=== PATIENT | female | born 1955 | race Caucasian/White ===

== ENCOUNTER 2018-09-28 19:14 | Observation (INO) ==
[2018-09-28] MEDS ORDERED: Aspirin 81 MG TAB.CHEW PO STA (19:32)
[2018-09-28] MEDS ORDERED: Nitroglycerin 1 INCH/GM PACKET TP ONE (19:32)
[2018-09-28] MEDS ORDERED: 0.9 % Sodium Chloride 1,000 ML ONE (19:36)
--- NOTE | 2018-09-28 19:38 | Emergency Department Note ---
Disposition Clinical Impression: Atypical chest pain Disposition: Admitted As Inpatient Condition: Good Chest Pain HPI - General Chief Complaint: ED Chest Pain Stated Complaint: chest pain Time Seen by Provider: 09/28/18 19:31 Source: patient Mode of arrival: ambulatory Limitations: no limitations Vital Signs Reviewed: Yes Nursing Notes Reviewed: Yes - History of Present Illness HPI Narrative: Patient says she was at work today and began having intermittent sharp left- sided chest pain just above her breast. Did not radiate anywhere. Did not cause any shortness of breath. There is no nausea or vomiting she denies any other complaints. She not having pain at the present time. She says she began to think about it got worried and came to the ER for evaluation. She has never had anything like this before. Pt complaint: chest pain Onset (ago): hour(s) (Several hours) Duration: intermittent Onset: during rest Pain Location: left chest Severity: mild Severity scale (1-10): 4 Quality: sharp Pain Radiation: none Improves with: nothing Worsens with: nothing Associated symptoms: Denies: nausea, vomiting, diaphoresis, dyspnea, sense of impending doom, syncope, palpitations, fever, cough, leg swelling - Related Data Home Medications Medication Instructions Recorded Confirmed Cholesterol Medication 1 tab PO HS 09/28/18 09/28/18 Insulin Glargine [Lantus] 25 unit SQ QAM 09/28/18 09/28/18 Januvia 09/28/18 Nilotinib HCl [Tasigna] 200 mg PO BID 09/28/18 09/28/18 Allergies Allergy/AdvReac Type Severity Reaction Status Date / Time acetaminophen [From Percocet] Allergy Vomiting Verified 09/28/18 19:15 oxycodone [From Percocet] Allergy Vomiting Verified 09/28/18 19:15 Sulfa (Sulfonamide Allergy Hives Verified 09/28/18 19:15 Antibiotics) All systems ED: reviewed and negative except as stated. Review of Systems: As Per HPI Constitutional: Denies: fever, chills, weakness, weight change Eyes: Denies: eye pain, eye discharge, vision change ENT ED: Denies: ear pain, throat pain, dental pain, hearing loss, epistaxis, congestion, dysphagia Cardiovascular: Reports: as per HPI, chest pain Respiratory: Denies: cough, dyspnea, wheezes, hemoptysis, stridor Gastrointestinal: Denies: abdominal pain, nausea, vomiting, diarrhea, constipation, hematemesis, melena, hematochezia Genitourinary: Denies: dysuria, frequency, hematuria, discharge Musculoskeletal: Denies: back pain, neck pain, arthralgia, myalgia Integumentary: Denies: rash, abrasion, lesions Neurological: Denies: headache, weakness, numbness, paresthesias, confusion, abnormal gait, vertigo Psychiatric: Denies: anxiety, depression, suicidal thoughts, homicidal thoughts, auditory hallucinations, visual hallucinations Endocrine: Denies: fatigue Hematological/Lymphatic: Denies: easy bleeding, easy bruising Allergic/Immunologic: Denies: facial swelling, urticaria Chest Pain PMH - Past Medical History Medical history: Reports: cancer, diabetes, hyperlipidemia Psychiatric history: Reports: no psych history 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 Absent: tenderness - Respiratory Respiratory exam: Present: normal lung sounds bilaterally - Cardiovascular Cardiovascular exam: Present: regular rate, normal rhythm, normal heart sounds - Abdominal Exam Abdominal exam: Present: soft, Non-Tender. Absent: tenderness, distention, guarding, rebound, rigidity - Extremities Exam Extremities exam: Present: normal inspection, full ROM. Absent: tenderness, pedal edema - Back Exam Back exam: Present: normal inspection, full ROM. Absent: tenderness - Neurological Exam Neurological exam: Present: alert, oriented X3 - Psychiatric Psychiatric exam: Present: normal affect, normal mood - Skin Skin exam: Present: warm, dry, intact, normal color Course Vital Signs Temperature 98.0 F 09/28/18 19:21 Pulse Rate 70 09/28/18 19:21 Respiratory Rate 18 09/28/18 19:21 Blood Pressure 175/80 09/28/18 19:21 O2 Sat by Pulse Oximetry 100 09/28/18 19:21 Temperature 98 F 09/28/18 21:20 Pulse Rate 76 09/28/18 21:24 Respiratory Rate 18 09/28/18 21:24 Blood Pressure 145/65 09/28/18 21:24 O2 Sat by Pulse Oximetry 97 09/28/18 21:24 Oxygen Delivery Oxygen Delivery Room Air Chest Pain - MDM Narrative Medical decision making narrative: I reviewed the patient's medication list Case discussed with Dr. Mendoza who has graciously agreed to admission of the patient to the hospital - Lab Data Result diagrams: 09/28/18 19:43 09/28/18 19:43 Lab Results 09/28/18 09/28/18 09/28/18 Range/Units 19:43 19:43 19:43 WBC 15.5 H (4.3-11.1) K/mcL RBC 4.79 (3.82-4.97) M/mcL Hgb 14.3 (11.5-15.4) g/dL Hct 43.2 (35.3-44.9) % MCV 90.2 (83.0-100.0) fL MCH 29.9 (28.0-33.3) pg MCHC 33.1 (31.6-35.5) g/dL RDW 13.8 (11.5-14.5) % Plt Count 244 (140-400) K/mcL MPV 9.7 (9.4-12.4) fL Immature Gran % 0.6 (0-4) % Seg Neutrophils % 69.5 % Lymphocytes % 13.4 % Monocytes % 7.2 % Eosinophils % 8.1 % Basophils % 1.2 % Neutrophils # 10.8 H (1.6-8.9) K/mcL Lymphocytes # 2.1 (0.6-4.6) K/mcL Monocytes # 1.1 (0.0-1.3) K/mcL Eosinophils # 1.3 H (0.0-0.6) K/mcL Basophils # 0.2 (0.0-0.2) K/mcL PT 10.9 (9.4-12.1) Seconds INR 1.0 APTT 37.1 H (26.0-36.0) Seconds D-Dimer < 215 (0-500) ng/mLFEU Sodium 135 L (136-145) mEq/L Potassium 3.6 (3.5-5.1) mEq/L Chloride 99 (98-107) mEq/L Carbon Dioxide 26 (23-29) mEq/L BUN 16 (8-23) mg/dL Creatinine 0.91 (0.60-1.20) mg/dL Est GFR ( Amer) > 60 (> 60) Est GFR (Non-Af Amer) > 60 (> 60) BUN/Creatinine Ratio 18 (6-26) Glucose 174 H (70-105) mg/dL Calculated Osmolality 285 (280-300) Calcium 9.4 (8.6-10.3) mg/dL Total Bilirubin 0.6 (0.3-1.0) mg/dL AST 16 (13-39) Units/L ALT 25 (7-52) Units/L Alkaline Phosphatase 61 (34-104) Units/L Troponin I < 0.03 (< 0.04) ng/mL Serum Total Protein 7.7 (6.4-8.9) g/dL Albumin 4.6 (3.5-5.7) g/dL Globulin 3.1 (2.4-3.5) g/dL Albumin/Globulin Ratio 1.5 (1.1-2.2) - Radiology Data Radiology results reviewed: Yes I reviewed the patient's radiology results. - EKG Data EKG attestation: Yes I reviewed and interpreted this EKG. EKG results narrative: EKG shows a sinus rhythm with rate of 71 bpm. VT interval 154 ms. QRS duration 87 ms QT interval 380 QTC 413 ms. R axis of 75 degrees there is no acute ischemic changes appreciated.
[2018-09-28] MEDS ORDERED: 0.9 % Sodium Chloride 1,000 ML IVC SCH ×2 (19:45→21:48)
[2018-09-28 19:50] LABS: Basophils # 0.2 K/mcL (0.0-0.2); Basophils % 1.2 %; Eosinophils # 1.3 K/mcL (0.0-0.6); Eosinophils % 8.1 %; Hematocrit 43.2 % (35.3-44.9); Hemoglobin 14.3 g/dL (11.5-15.4); Immature Granulocytes % 0.6 % (0-4); Lymphocytes # 2.1 K/mcL (0.6-4.6); Lymphocytes % 13.4 %; Mean Corpuscular HGB Conc 33.1 g/dL (31.6-35.5); Mean Corpuscular Hemoglobin 29.9 pg (28.0-33.3); Mean Corpuscular Volume 90.2 fL (83.0-100.0); Mean Platelet Volume 9.7 fL (9.4-12.4); Monocytes # 1.1 K/mcL (0.0-1.3); Monocytes % 7.2 %; Neutrophils # 10.8 K/mcL (1.6-8.9); Platelet Count 244 K/mcL (140-400); Red Blood Count 4.79 M/mcL (3.82-4.97); Red Cell Distribution Width 13.8 % (11.5-14.5); Segmented Neutrophils % 69.5 %
[2018-09-28 20:02] LABS: Prothrombin Time 10.9 Seconds (9.4-12.1)
[2018-09-28 20:05] LABS: Activated Partial Thrombo Time 37.1 Seconds (26.0-36.0)
[2018-09-28 20:06] LABS: D-Dimer < 215 ng/mLFEU (0-500)
[2018-09-28 20:10] LABS: Alanine Aminotransferase 25 Units/L (7-52); Albumin 4.6 g/dL (3.5-5.7); Albumin/Globulin Ratio 1.5 (1.1-2.2); Alkaline Phosphatase 61 Units/L (34-104); Aspartate Amino Transferase 16 Units/L (13-39); BUN/Creatinine Ratio 18 (6-26); Bilirubin,Total 0.6 mg/dL (0.3-1.0); Blood Urea Nitrogen 16 mg/dL (8-23); Calcium 9.4 mg/dL (8.6-10.3); Carbon Dioxide 26 mEq/L (23-29); Chloride 99 mEq/L (98-107); Globulin 3.1 g/dL (2.4-3.5); Glucose 174 mg/dL (70-105); Osmolality,Calculated 285 (280-300); Potassium 3.6 mEq/L (3.5-5.1); Sodium 135 mEq/L (136-145); Total Protein 7.7 g/dL (6.4-8.9); Troponin I < 0.03 ng/mL (< 0.04); eGFR For Non-African Americans > 60 (> 60)
[2018-09-28] MEDS ORDERED: Naloxone 0.4 MG/ML INJ IVP PRN (21:48)
[2018-09-29 01:48] LABS: Basophils # 0.1 K/mcL (0.0-0.2); Basophils % 1.1 %; Eosinophils # 0.7 K/mcL (0.0-0.6); Eosinophils % 5.9 %; Hematocrit 41.2 % (35.3-44.9); Hemoglobin 13.8 g/dL (11.5-15.4); Immature Granulocytes % 0.4 % (0-4); Lymphocytes # 2.8 K/mcL (0.6-4.6); Lymphocytes % 23.3 %; Mean Corpuscular HGB Conc 33.5 g/dL (31.6-35.5); Mean Corpuscular Hemoglobin 30.2 pg (28.0-33.3); Mean Corpuscular Volume 90.2 fL (83.0-100.0); Mean Platelet Volume 9.8 fL (9.4-12.4); Monocytes # 1.1 K/mcL (0.0-1.3); Monocytes % 8.7 %; Neutrophils # 7.3 K/mcL (1.6-8.9); Platelet Count 234 K/mcL (140-400); Red Blood Count 4.57 M/mcL (3.82-4.97); Red Cell Distribution Width 13.7 % (11.5-14.5); Segmented Neutrophils % 60.6 %
[2018-09-29 02:08] LABS: BUN/Creatinine Ratio 18 (6-26); Blood Urea Nitrogen 13 mg/dL (8-23); Calcium 9.2 mg/dL (8.6-10.3); Carbon Dioxide 27 mEq/L (23-29); Chloride 105 mEq/L (98-107); Glucose 130 mg/dL (70-105); Osmolality,Calculated 288 (280-300); Potassium 3.7 mEq/L (3.5-5.1); Sodium 138 mEq/L (136-145); eGFR For Non-African Americans > 60 (> 60)
[2018-09-29 11:24] VITALS: BP 157/81
--- NOTE | 2018-09-29 12:23 | Internal Med History&Physical ---
Date of Encounter: 09/29/18 Time of Encounter: 11:55 Assessment and Plan (1) Chest pain Current visit: Yes Status: Resolved Now resolved. Etiology is not obvious. Repeat cardiac enzymes were ordered through emergency room. Qualifiers: Chest pain type: unspecified Qualified Code(s): R07.9 - Chest pain, unspecified Internal Medicine - H&P: HPI Chief complaint: Chest pain Admitted From: Emergency Dept Plans for Post Hospital Care: Home History of present illness: Ms. Bird is a 62 year old female who came to emergency room stating she had onset of discomfort in her left chest approximately 3 PM while doing usual activities at work. She describes the pain as a sudden onset of "jab/pruritic" sensation in her left upper chest area. There were no other symptoms associ ated. She took Aleve shortly after onset without relief. She came to emergency room and was evaluated and was felt to deserve admission for ongoing care needs. She states the pain resolved approximately 8 p.m. last night and has not recurred. She denies previous similar pain. She denies hypertension VT heart failure angina DVT or pulmonary embolus. She reports she has a "heart murmur" but does not know details. She states she feels back to her baseline now and wishes to be discharged home. Past Med Surg Social Fam HX - Past Medical History Medical history: cancer, diabetes, hyperlipidemia Additional medical history: cervical cancer Psychiatric history: no psych history - Past Surgical History Additional surgical history: cone sx- cervical cancer. lumpectomy - Social History Smoking Status: Never smoker Smokeless Tobacco Status: No Alcohol use: occasionally Drug use: none Internal Medicine - H&P: Meds Cholesterol Medication 1 tab PO HS 09/28/18 [History] Insulin Glargine [Lantus] 25 unit SQ QAM 09/28/18 [History] Januvia 09/28/18 [History] Nilotinib HCl [Tasigna] 200 mg PO BID 09/28/18 [History] Allergy/AdvReac Type Severity Reaction Status Date / Time acetaminophen [From Percocet] Allergy Vomiting Verified 09/28/18 19:15 oxycodone [From Percocet] Allergy Vomiting Verified 09/28/18 19:15 Sulfa (Sulfonamide Allergy Hives Verified 09/28/18 19:15 Antibiotics) All Systems PM: A 10-system review of systems was performed and is negative for pertinent findings except as documented above in the HPI. Review of systems: Cardiovascular: As per history of present illness Respiratory: She smoked from age [age]. She denies chronic lung disease and does not use home oxygen. She has not been tested for KAREN. GI: She denies disorders of her liver gallbladder or exocrine pancreas : She denies hematuria dysuria or kidney stones. She has occasional UTI. Neurologic: She denies large distribution strokes or seizures. Endocrine: She was diagnosed with DM 2 approximately 2013. She has hyperlipidemia but denies thyroid disease. Hematology/oncology: She was diagnosed with cervical cancer at age 28 and had a hysterectomy which was curative. She was diagnosed with CML 2013 follows with oncologists at [place]. She denies other malignancies or anemia. Psychiatric: She denies anxiety depression or other mental health issues. 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 She denies gout or other bone joint or muscle abnormalities. - Constitutional Vitals: Temp Pulse Resp BP Pulse Ox 98.4 F 61 16 157/81 98 09/29/18 11:24 09/29/18 11:24 09/29/18 11:24 09/29/18 11:24 09/29/18 11:24 Exam: Gen.: She is a well-developed well-nourished female sitting in a chair at bedside who appears in no acute distress. She states she is pain-free. HEENT: Head is atraumatic and normal cephalic. Eyes: EOMI. There is no scleral icterus. Mouth: Mucosa is moist. Neck: Supple and nontender. There is no thyromegaly or adenopathy noted. Heart: Regular with a 2/6 systolic murmur heard at the base of the heart. No gallops or ectopics are heard. Chest: She is nontender in her chest wall to palpation. Lungs: No wheezes or crackles are heard. Abdomen: Soft and nontender. No masses or guarding are noted. Exam is slightly limited because she is in the seated position. Extremities: There is no cyanosis edema or clubbing noted. Dorsalis pedis and posttibial pulses are trace to 1+ palpable bilaterally. Neurologic: Mental status: She is talkative and a good historian. Cranial nerves: Smile is symmetric. Forehead wrinkles bilaterally. Tongue protrudes midline. EOMI. Motor: There is no pronator drift. Cerebellar: Finger to nose is intact bilaterally. Skin: Warm and dry Internal Med - H&P Results - Labs CBC & Chem 7: 09/29/18 01:40 09/29/18 01:40 Labs: Short CBC 09/28/18 09/29/18 Range/Units 19:43 01:40 WBC 15.5 H 12.1 H (4.3-11.1) K/mcL Hgb 14.3 13.8 (11.5-15.4) g/dL Hct 43.2 41.2 (35.3-44.9) % Plt Count 244 234 (140-400) K/mcL Neutrophils # 10.8 H 7.3 (1.6-8.9) K/mcL BMP 09/28/18 09/29/18 19:43 01:40 Sodium 135 L 138 Potassium 3.6 3.7 Chloride 99 105 Carbon Dioxide 26 27 BUN 16 13 Creatinine 0.91 0.73 Glucose 174 H 130 H Calcium 9.4 9.2 Cardiac Enzymes 09/28/18 09/29/18 09/29/18 Range/Units 19:43 01:40 07:38 Troponin I < 0.03 < 0.03 < 0.03 (< 0.04) ng/mL Liver Function 09/28/18 Range/Units 19:43 Total Bilirubin 0.6 (0.3-1.0) mg/dL AST 16 (13-39) Units/L ALT 25 (7-52) Units/L Alkaline Phosphatase 61 (34-104) Units/L Albumin 4.6 (3.5-5.7) g/dL - Impressions ITS Impressions Chest X-Ray 09/28/18 19:32 IMPRESSION: No evidence for acute cardiopulmonary process. D/ / Dwain Hamilton MD / Dwain Hamilton MD Interpreting Provider: Dwain Hamilton MD
--- NOTE | 2018-09-29 12:31 | Discharge Summary ---
Orders not resulted at time of discharge: Pending orders 09/29/18 13:45 Troponin I Q6H Date of Encounter: 09/29/18 Time of Encounter: 11:55 - Discharge Diagnosis (1) Chest pain Priority: Primary Status: Resolved Qualifiers: Chest pain type: unspecified Qualified Code(s): R07.9 - Chest pain, unspecified Hospital course: Ms. Bird is a 62 year old female who came to emergency room stating she had onset of discomfort in her left chest approximately 3 PM while doing usual activities at work. She describes the pain as a sudden onset of "jab/prick" sensation in her left upper chest area. There were no other symptoms associated. She took Aleve shortly after onset without relief. She came to emergency room and was evaluated and was felt to deserve admission for ongoing care needs. Initial orders were written by the emergency room physician. I saw her on September 29 and performed the history physical and discharge. Repeat cardiac enzymes showed no evidence of myocardial damage. When I saw her the pain had resolved and had not recurred. I did not feel the pain was likely be of myocardial ischemic origin. D-dimer returned in normal range. The etiology of the pain was uncertain. I told her I felt she was stable for discharge home. She will follow with her PCP Dr. Garibay within 1 week. - Time Spent with Patient Total time spent providing and/or coordinating discharge services: - Discharge Medications Prescriptions: Continue Cholesterol Medication 1 tab PO HS Insulin Glargine [Lantus] 25 unit SQ QAM Januvia Nilotinib HCl [Tasigna] 200 mg PO BID Home Medications: Cholesterol Medication 1 tab PO HS 09/28/18 [History] Insulin Glargine [Lantus] 25 unit SQ QAM 09/28/18 [History] Januvia 09/28/18 [History] Nilotinib HCl [Tasigna] 200 mg PO BID 09/28/18 [History] Allergies/Adverse Reactions: Allergy/AdvReac Type Severity Reaction Status Date / Time acetaminophen [From Percocet] Allergy Vomiting Verified 09/28/18 19:15 oxycodone [From Percocet] Allergy Vomiting Verified 09/28/18 19:15 Sulfa (Sulfonamide Allergy Hives Verified 09/28/18 19:15 Antibiotics) Date of admission: 09/28/18 20:26 Primary care physician: Sunil Garibay D.O. - Constitutional Vitals: Temp Pulse Resp BP Pulse Ox 98.4 F 61 16 157/81 98 09/29/18 11:24 09/29/18 11:24 09/29/18 11:24 09/29/18 11:24 09/29/18 11:24 - Patient Status Disposition: Home, Self-Care Condition: Good - Discharge Instructions Follow Up With: NONE,PCP [Primary Care Provider] - 1 week - Diet and Activity Activity: resume usual activities as tolerated Diet: advance to your usual diet
--- NOTE | 2018-09-29 20:09 | Electrocardiograph Report ---
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
--- NOTE | 2018-09-29 20:22 | Electrocardiograph Report ---
[place] [id number] Test Date: 2018-09-28 Pat Name: Vani Bird Department: EDP-12 Room: [facility] Gender: F Customer Services Manager: : 1955 Requested By: Damaso Call Order Number: [id number] Reading MD: Ann Marr Measurements Intervals [place] Rate: 71 P: 81 [place]: 154 QRS: 75 QRSD: 87 T: 56 QT: 380 QTc: 413 Interpretive Statements Sinus rhythm Electronically Signed On 09-29-2018 20:20:11 EDT by Ann Marr
== END 2018-09-29 13:01 | disposition home or self-care (01) ==
LOC: EMEROOPIK 19:14 → INPPIK 19:14
PROVIDERS: ADMIT Internal Medicine; ATTEND Internal Medicine